=== PATIENT | female | born 1930 | race African-American/Black ===

== ENCOUNTER 2018-04-16 14:22 | Emergency (ER) | payer MEDICARE, MEDICAID ==
[~2018-04-16] VITALS: Ht 165.1 cm; Wt 65.3 kg
[~2018-04-16 14:22] MED LIST: ATOR20TA PO; LEVO500T89 PO; MEMA10TA2 PO; TRAM50TA94 PO
[2018-04-16 14:29] VITALS: BP 142/74
[2018-04-16] MEDS ORDERED: ACETAMINOPHEN 325MG TABLET PO ONE (15:15)
== END 2018-04-16 16:24 | disposition home or self-care (01) ==
LOC: ER 14:22
DX: M19.011 Primary osteoarthritis, right shoulder (principal); E78.00 Pure hypercholesterolemia, unspecified; F03.90 Unspecified dementia, unspecified severity, without behavioral disturbance, psychotic disturbance, mood disturbance, and anxiety; E78.5 Hyperlipidemia, unspecified; Z88.6 Allergy status to analgesic agent; Z79.899 Other long term (current) drug therapy
CPT/HCPCS: 73030; 99284